=== PATIENT | female | born 1955 | race American Indian/Alaskan Native ===

== ENCOUNTER 2016-09-19 06:35 | Emergency (ER) | payer OTHER ==
[2016-09-19 06:59] VITALS: O2SAT 95
[2016-09-19] MEDS ORDERED: Lidocaine 2% Inj (20ml) INFIL ONE (08:34)
--- NOTE | 2016-09-19 09:03 | C.PDOC ---
History Of Present Illness 61-year-old female, PMHx includes Hypertension, presents to the emergency department with complaints of foot pain. Patient states she accidentally kicked her left fifth toe on an iron chair, at 04:00 this morning. She notes associated pain, swelling and deformity, resulting in her coming to the ED for evaluation. Denies numbness/weakness, nausea/vomiting, fevers or chills. Time Seen by Provider: 09/19/16 07:21 Chief Complaint (Nursing): Lower Extremity Problem/Injury History Per: Patient History/Exam Limitations: no limitations Current Symptoms Are (Timing): Still Present Severity: Moderate Past Medical History Reviewed: Historical Data, Nursing Documentation, Vital Signs Vital Signs: Last Vital Signs Temp 98.2 F 09/19/16 06:52 Pulse 70 09/19/16 06:52 Resp 18 09/19/16 06:52 BP 155/94 H 09/19/16 06:52 Pulse Ox 95 09/19/16 09:08 - Medical History PMH: HTN - [facility] Procedures COLONOSCOPY (07/30/00) ESOPHAGOGASTRODUODENOSCOPY [EGD] W/CLOSED BIOPSY (07/30/00) Family History: States: No Known Family Hx - Social History Hx Tobacco Use: Yes Hx Alcohol Use: No Hx Substance Use: No - Immunization History Hx Tetanus Toxoid Vaccination: No Hx Influenza Vaccination: No Hx Pneumococcal Vaccination: No Review Of Systems Except As Marked, All Systems Reviewed And Found Negative. Constitutional: Negative for: Fever, Chills Respiratory: Negative for: Shortness of Breath Gastrointestinal: Negative for: Vomiting Musculoskeletal: Positive for: Foot Pain Neurological: Negative for: Weakness, Numbness Physical Exam - Physical Exam Appears: Non-toxic, No Acute Distress Skin: Warm, Dry, No Rash Eye(s): bilateral: Normal Inspection Nose: Normal Oral Mucosa: Moist Lips: Normal Appearing Neck: Normal ROM Respiratory: No Accessory Muscle Use Extremity: Capillary Refill (<2 seconds), Deformity, Swelling, Other ((+) deformity and dislocation of left 5th digit lower extremity. Tenderness to palpation. No skin changes. Pulses are intact) Neurological/Psych: Oriented x3, Normal Speech ED Course And Treatment O2 Sat by Pulse Oximetry: 95 Medical Decision Making Medical Decision Making: Plan: * Lidocaine * Left Foot X-Ray * Reassess and Disposition Disposition - Disposition Referrals: Hollis Schmitt DPM [Staff Provider] - Paxton Frazier DPM [[facility]] - [facility] [Outside] Disposition: HOME/ ROUTINE Disposition Time: 10:38 Condition: FAIR Additional Instructions: Follow up with the Night Club Manager within 1-2 days. Return if worsened. Prescriptions: Acetaminophen [Tylenol] 325 mg PO Q6 PRN #30 tab PRN Reason: Pain, Mild (1-3) traMADol [Ultram] 50 mg PO Q6 PRN #20 tab PRN Reason: Pain Instructions: Toe Fracture (ED) - Clinical Impression Clinical Impression: Fracture dislocation of toe - PA / PET ADOPTION COUNSELOR / Resident Statement MD/DO has reviewed & agrees with the documentation as recorded. - Scribe Statement The provider has reviewed the documentation as recorded by the Scribe (Marilee Bruno) All medical record entries made by the Scribe were at my direction and personally dictated by me. I have reviewed the chart and agree that the record accurately reflects my personal performance of the history, physical exam, medical decision making, and the department course for this patient. I have also personally directed, reviewed, and agree with the discharge instructions and disposition.
[2016-09-19] MEDS ORDERED: Lidocaine 2% Inj (20ml) ONE (09:33)
[2016-09-19 10:41] VITALS: BP 155/90; PULSE 55; RESP 20; TEMP 98.3
--- NOTE | 2016-09-19 11:14 | RAD ---
PROCEDURE: HISTORY: injury, fx vs dislocation COMPARISON: None TECHNIQUE: Three views FINDINGS: There is diagonal fracture of the 5th proximal phalanx -midshaft with over writing fracture for and medial apical angulation no gross dislocation is seen the distal phalanx in distal proximal phalanx fracture fragment are laterally pointing. The middle and distal phalangeal segments here appear fused -developmental variation IMPRESSION: Displace angulated fracture 5th proximal phalanx mid segment as detailed above. No dislocation appreciated
--- NOTE | 2016-09-19 11:16 | RAD ---
PROCEDURE: HISTORY: 5th toe reduction COMPARISON: Same-day exam 8:43 a.m. TECHNIQUE: Three views FINDINGS: The previously referenced 5th proximal forearm phalangeal midshaft fracture is less angulated showed less displaced last over riding suggested. No dislocation appreciated IMPRESSION: Interval reduction in the prior displaced/angulated fracture
== END 2016-09-19 10:50 | disposition home or self-care (01) ==
LOC: C.ER 06:35
DX: S92.502A Displaced unspecified fracture of left lesser toe(s), initial encounter for closed fracture (principal); W22.03XA Walked into furniture, initial encounter; Y93.89 Activity, other specified; Y92.89 Other specified places as the place of occurrence of the external cause